=== PATIENT | male | born 1995 | race Caucasian/White ===

== ENCOUNTER 2016-07-28 11:53 | Emergency (ER) | payer SELFPAY ==
--- NOTE | 2016-07-28 12:38 | UC ---
Throat Pain/Nasal Blu HPI - HPI Summary HPI Summary: ST and fever starting 4 days ago, fever stopped after the first two days but ST continued and pt has been feeling lots of swelling in throat. Denies vomiting, rash, or cough. - History of Current Complaint Chief Complaint: UCRespiratory Stated Complaint: SORE THROAT Time Seen by Provider: 07/28/16 12:23 Hx Obtained From: Patient Onset/Duration: Gradual Onset, Lasting Days Severity: Moderate Cough: None Associated Signs & Symptoms: Positive: Fever - Allergies/Home Medications Allergies/Adverse Reactions: Allergies Allergy/AdvReac Type Severity Reaction Status Date / Time No Known Allergies Allergy Verified 07/28/16 12:06 PMH/Surg Hx/FS Hx/Imm Hx - Surgical History Surgical History: None - Family History Known Family History: Positive: Hypertension - Social History Occupation: Student Alcohol Use: None Substance Use Type: None Smoking Status (MU): Never Smoked Tobacco Review of Systems Constitutional: Fever, Chills Skin: Negative Eyes: Negative ENT: Sore Throat Respiratory: Negative Cardiovascular: Negative Gastrointestinal: Negative Genitourinary: Negative Motor: Negative Neurovascular: Negative Musculoskeletal: Negative Neurological: Negative Psychological: Negative All Other Systems Reviewed And Are Negative: Yes Physical Exam Triage Information Reviewed: Yes Appearance: Well-Appearing, No Pain Distress, Well-Nourished Vital Signs: Initial Vital Signs Temp 99.4 F 07/28/16 12:02 Pulse 107 07/28/16 12:02 Resp 18 07/28/16 12:02 BP 124/79 07/28/16 12:02 Pulse Ox 98 07/28/16 12:02 Vital Signs Reviewed: Yes Eye Exam: Normal Eyes: Positive: Conjunctiva Clear ENT: Positive: Hearing grossly normal, Pharyngeal erythema, TMs normal, Tonsillar swelling Dental Exam: Normal Neck: Positive: Enlarged Nodes @ - tonsillar, ant cervical Respiratory Exam: Normal Respiratory: Positive: Chest non-tender, Lungs clear, Normal breath sounds, No respiratory distress, No accessory muscle use Cardiovascular: Positive: No Murmur, Tachycardia Musculoskeletal Exam: Normal Neurological Exam: Normal Neurological: Positive: Alert Psychological Exam: Normal Skin Exam: Normal Throat Pain/Nasal Course/Dx - Course Course Of Treatment: Discussed clinical diagnosis of strep, pt is comfortable with this and empiric treatment. Will see his PCP or return here for new or prolonged symptoms. - Differential Dx/Diagnosis Provider Diagnoses: Strep tonsillitis, clinical diagnosis. elevated blood pressure due to discomfort Discharge - Discharge Plan Condition: Stable Disposition: HOME Prescriptions: Penicillin VK TAB 500 MG(NF) [Penicillin VK 500 mg Tab(NF)] 500 mg PO BID #20 tab Patient Education Materials: Strep Throat (ED) Referrals: Mikki Carreon MD [Primary Care Provider] - Additional Instructions: If you do not have clear improvement in the next 3-4 days, or if you have worsening symptoms, please see your primary care provider.
== END 2016-07-28 12:48 | disposition home or self-care (01) ==
LOC: UCEAST 11:53
DX: J03.00 Acute streptococcal tonsillitis, unspecified (principal); R03.0 Elevated blood-pressure reading, without diagnosis of hypertension
CPT/HCPCS: 99202; G0463

== ENCOUNTER 2016-09-16 18:12 | Emergency (ER) | payer BC ==
[2016-09-16 18:18] VITALS: BP 129/86
--- NOTE | 2016-09-16 21:07 | UC ---
Miguel Sousa SooYoung, scribed for Kweis Hunt MD on 09/16/16 at 1856 . Skin Complaint HPI - HPI Summary HPI Summary: A 20 y/o M presents to [facility] [place] with c/o diffuse, non-pruritic rash, or possible insect bites, onset a week ago. Pt states it's not resolving. Erythematous areas are small and located on all extremities, chest and back, he first noticed it on his L calf. Denies being in a hot tub recently, new medications, or new soaps. Pt states feeling healthy otherwise. - History of Current Complaint Chief Complaint: [facility] Time Seen by Provider: 09/16/16 18:50 Stated Complaint: RASH Hx Obtained From: Patient Onset/Duration: Gradual Onset, Lasting Weeks - approx one week, Still Present Timing: Constant Onset Severity: Moderate Current Severity: Moderate Pain Intensity: 0 Pain Scale Used: 0-10 Numeric Location: Diffuse Character: Redness Associated Signs & Symptoms: Positive: Negative - Allergy/Home Medications Allergies/Adverse Reactions: Allergies Allergy/AdvReac Type Severity Reaction Status Date / Time No Known Allergies Allergy Verified 07/28/16 12:06 Home Medications: Home Medications NK [No Home Medications Reported] 09/16/16 [History Confirmed 09/16/16] Review of Systems Constitutional: Negative Skin: Rash - diffuse full-body rash All Other Systems Reviewed And Are Negative: Yes PMH/Surg Hx/FS Hx/Imm Hx Previously Healthy: Yes - denies PMHx; neg COPD. - Surgical History Surgical History: None - Family History Known Family History: Positive: Hypertension - Social History Occupation: Employed Full-time Lives: With Family Alcohol Use: None Substance Use Type: Marijuana Substance Use Comment - Amount & Last Used: twice a year. Smoking Status (MU): Never Smoked Tobacco Physical Exam Triage Information Reviewed: Yes Appearance: Well-Appearing, No Pain Distress Vital Signs: Initial Vital Signs Temp 99.4 F 09/16/16 18:14 Pulse 102 09/16/16 18:14 Resp 18 09/16/16 18:14 BP 129/86 09/16/16 18:14 Pulse Ox 100 09/16/16 18:14 Vital Signs Reviewed: Yes Eye Exam: Normal - EOMI, RENAE ENT: Positive: Normal ENT inspection Neck: Positive: Supple, Nontender Respiratory: Positive: Lungs clear, Normal breath sounds Cardiovascular: Positive: RRR Abdomen Description: Positive: Nontender, Soft Musculoskeletal Exam: Normal Musculoskeletal: Positive: Strength Intact Neurological Exam: Normal - A&Ox3; sensory/motor intact Psychological Exam: Normal - affect/mood appropriate Skin: Positive: rashes - Erythematous rash with 2-10mm scaling patches, uniformly distributed on his trunk and extremities. Course/Dx - Course Course Of Treatment: Pt medications reviewed this visit. Pre-Hypertensive BP reading (129/86); patient referred to PCP for follow-up. WILL CHECK LAB WORK TO EVAL FOR ANY SYSTEMIC CAUSE OF THE RASH. DISCUSSED THE POSSIBLE CAUSES. I GAVE THE PATIENT AN UPTODATE PATIENT INFORMATION HANDOUT FOR PITYRIASIS ROSEA. PATIENT FEELS WELL. F/U PMD, RETURN IF WORSE. - Diagnoses Provider Diagnoses: RASH, PROBABLE PITYRIASIS ROSEA. Discharge - Discharge Plan Condition: Stable Disposition: HOME Patient Education Materials: Acute Rash (ED), Pityriasis rosea (ED) Referrals: Mikki Carreon MD [Primary Care Provider] - Additional Instructions: Your blood pressure reading today was 129/86, which is PRE-HYPERTENSIVE. Follow- up with your primary care provider within 4 weeks for blood pressure readings and further evaluation. FOLLOW UP WITH YOUR DOCTOR. YOUR RASH APPEARS TO BE PITYRIASIS ROSEA. LAB WORK WAS OBTAINED TO ENSURE THERE ARE ARE NO ABNORMALITIES OF YOUR WHITE BLOOD CELLS. GET SEEN AGAIN FOR ANY WORSENING OF YOUR CONDITION OR QUESTIONS OR CONCERNS. The documentation as recorded by the Miguel ireland SooYoung accurately reflects the service I personally performed and the decisions made by me, Kwesi Hunt MD.
[2016-09-17 13:39] LABS: Hematocrit 47 % (42-52); Hemoglobin 15.4 g/dl (14.0-18.0); Mean Corpuscular HGB Conc 33 g/dl (31-36); Mean Corpuscular Hemoglobin 31 pg (27-31); Mean Corpuscular Volume 93 fL (80-94); Mean Platelet Volume 9 um3 (7.4-10.4); Red Blood Count 5.04 10^6/ul (4.0-5.4); Red Cell Distribution Width 14 % (10.5-15); White Blood Count 10.1 10^3/ul (3.5-10.8)
[2016-09-17 13:43] LABS: Add Diff/Slide Review? Slide Review Added; Comments Flag Yes
[2016-09-17 14:02] LABS: ALT 11 U/L (7-52); AST 20 U/L (13-39); Albumin 4.6 g/dL (3.2-5.2); Alkaline Phosphatase 75 U/L (34-104); Anion Gap 7 mmol/L (2-11); BUN/Creatinine Ratio 14.4 (8-20); Blood Urea Nitrogen 13 mg/dL (6-24); CO2 Carbon Dioxide 28 mmol/L (22-32); Calcium 9.4 mg/dL (8.6-10.3); Chloride 104 mmol/L (101-111); EGFR African American 138.4 (>60); EGFR Non-African American 107.6 (>60); Glucose 86 mg/dL (70-100); Potassium 4.5 mmol/L (3.5-5.0); Sodium 139 mmol/L (133-145); Total Protein 7.6 g/dL (6.4-8.9)
== END 2016-09-16 19:15 | disposition home or self-care (01) ==
LOC: UCEAST 18:12
DX: R21 Rash and other nonspecific skin eruption (principal)
CPT/HCPCS: 36415; 80053; 85025; 86141; 99211; G0463

== ENCOUNTER 2017-05-09 19:07 | Emergency (ER) | payer BC ==
[2017-05-09 19:40] VITALS: BP 120/74
[2017-05-09] MEDS ORDERED: Famotidine TAB* 20 MG PO ONE (21:33)
[2017-05-09] MEDS ORDERED: Al Hydrox/Mg Hydrox/Simet LIQ* 30 ML UDC PO ONE (21:33)
--- NOTE | 2017-05-09 21:51 | UC ---
Abdominal Pain Male HPI - HPI Summary HPI Summary: 21 year old male with no significant pmhx here with LUQ pain for two weeks. Pain is described as sharp stabbing with no radiation. Pain is intermittent with no alleviating or aggravating factor. Reports constipation but denies any other complaints. - History of Current Complaint Chief Complaint: UCAbdominalPain Stated Complaint: ABD PAIN Time Seen by Provider: 05/09/17 20:56 Onset/Duration: Gradual Onset Timing: Constant Severity Initially: Mild Severity Currently: Mild Pain Intensity: 2 Location: Discrete At: RUQ Radiates: No Character: Sharp Aggravating Factor(s): Food Alleviating Factor(s): Spontaneous Resolution Associated Signs And Symptoms: Positive: Constipation, Diarrhea. Negative: Fever, Cough, Urinary Symptoms, Vomiting - Allergies/Home Medications Allergies/Adverse Reactions: Allergies Allergy/AdvReac Type Severity Reaction Status Date / Time No Known Allergies Allergy Verified 07/28/16 12:06 PMH/Surg Hx/FS Hx/Imm Hx Previously Healthy: Yes - Surgical History Surgical History: None - Family History Known Family History: Positive: Hypertension - Social History Alcohol Use: None Substance Use Type: Marijuana Substance Use Comment - Amount & Last Used: twice a year. Smoking Status (MU): Never Smoked Tobacco Review of Systems Constitutional: Negative Skin: Negative Eyes: Negative ENT: Negative Respiratory: Negative Cardiovascular: Negative Gastrointestinal: Abdominal Pain Genitourinary: Negative Motor: Negative Neurovascular: Negative Musculoskeletal: Negative Neurological: Negative Psychological: Negative All Other Systems Reviewed And Are Negative: Yes Physical Exam Triage Information Reviewed: Yes Appearance: Well-Appearing, No Pain Distress Vital Signs: Initial Vital Signs Temp 37.8 C 05/09/17 19:35 Pulse 94 05/09/17 19:35 Resp 16 05/09/17 19:35 BP 120/74 05/09/17 19:35 Pulse Ox 99 05/09/17 19:35 Eye Exam: Normal ENT Exam: Normal Dental Exam: Normal Respiratory Exam: Normal Cardiovascular Exam: Normal Abdominal Exam: Normal Bowel Sounds: Positive: Present Musculoskeletal Exam: Normal Neurological Exam: Normal Abd Pain Male Course/Dx - Differential Dx/Clinical Impression Differential Diagnosis/HQI/PQRI: Diverticulitis, Pancreatitis, Urinary Tract Infection, Other - gastritis Provider Diagnoses: Left upper quadrant pain Discharge - Discharge Plan Condition: Good Disposition: HOME Prescriptions: Docusate Sodium [Colace] 100 mg PO TID 30 Days #90 capsule Famotidine TAB* [Pepcid 20 MG TAB*] 40 mg PO DAILY #30 tab Patient Education Materials: Constipation (ED), Gastritis (ED) Forms: *Work Release Referrals: Mikki Carreon MD [Primary Care Provider] - Additional Instructions: Follow up with your PMD if the symptoms do not resolve.
== END 2017-05-09 21:56 | disposition home or self-care (01) ==
LOC: UCEAST 19:07
DX: R10.12 Left upper quadrant pain (principal)
CPT/HCPCS: 81003; 87086; 99212; A9270-GY; G0463

== ENCOUNTER 2017-06-11 12:27 | Emergency (ER) | payer BC ==
[2017-06-11 13:37] VITALS: BP 123/71
--- NOTE | 2017-06-11 13:48 | UC ---
Throat Pain/Nasal Blu HPI - HPI Summary HPI Summary: 21 y/o male presents to the urgent care c/o sore throat , dry cough, headache, body aches, sweats, fever, since 06/08/2017. Pt has taking ibuprofen PO to alleviate symptoms. Last dose 2 hrs ago. Pain w/ swallowing is 7/10. Pt denies SOB, chest pain, abdominal pain ,N/V/D - History of Current Complaint Chief Complaint: UCRespiratory Stated Complaint: SINUS CONGESTION Time Seen by Provider: 06/11/17 13:39 Hx Obtained From: Patient Onset/Duration: Gradual Onset, Lasting Days - 4 days, Still Present, Worse Since - today Severity: Moderate Pain Intensity: 7 Pain Scale Used: 0-10 Numeric Cough: Nonproductive Associated Signs & Symptoms: Positive: Dysphagia, Nasal Discharge, Fever - Epiglottits Risk Factors Epiglottis Risk Factors: Negative - Allergies/Home Medications Allergies/Adverse Reactions: Allergies Allergy/AdvReac Type Severity Reaction Status Date / Time No Known Allergies Allergy Verified 06/11/17 13:37 PMH/Surg Hx/FS Hx/Imm Hx Previously Healthy: Yes - Pt denies PMHX - Surgical History Surgical History: None - Family History Known Family History: Positive: Hypertension, Diabetes - Social History Occupation: Student Lives: With Family Alcohol Use: None Substance Use Type: Marijuana Substance Use Comment - Amount & Last Used: twice a year. Smoking Status (MU): Never Smoked Tobacco - Immunization History Vaccination Up to Date: Yes Review of Systems Constitutional: Fever, Chills, Fatigue, Other - body aches Skin: Negative Eyes: Negative ENT: Sore Throat, Nasal Discharge, Sinus Congestion Respiratory: Cough - dry Cardiovascular: Negative Gastrointestinal: Negative Genitourinary: Negative Motor: Negative Neurovascular: Negative Musculoskeletal: Negative Neurological: Headache Psychological: Negative Is Patient Immunocompromised?: No All Other Systems Reviewed And Are Negative: Yes Physical Exam - Summary Physical Exam Summary: VITAL SIGNS: Reviewed. GENERAL: Patient is a well developed and nourished male who is sitting comfortable in the examining table. Patient is not in any acute respiratory distress. HEAD AND FACE: No signs of trauma. No ecchymosis, hematomas or skull depressions. No sinus tenderness. edematous erythematous nasal mucosa with yellowish discharge, EYES: PERRLA, EOMI x 2, No injected conjunctiva, clear watery eyes, no nystagmus. No photophobia. EARS: Hearing grossly intact. Ear canals and tympanic membranes are within normal limits. MOUTH: Positive pharynx with erythema, no exudates,no palatal petechiae. no B/L tonsillar enlargement Uvula in midline. NECK: Supple, trachea is midline, Positive anterior cervical lymphadenopathy, no JVD, no carotid bruit, no c-spine tenderness, neck with full ROM. No meningeal signs, no Kernig's or brudzinskis signs. CHEST: Symmetric, no tenderness at palpation LUNGS: Clear to auscultation bilaterally. No wheezing or crackles. CVS: Regular rate and rhythm, S1 and S2 present, no murmurs or gallops appreciated. ABDOMEN: Soft, non-tender. No signs of distention. No rebound no guarding, and no masses palpated. Bowel sounds are normal. EXTREMITIES: FROM in all major joints, no edema, no cyanosis or clubbing. NEURO: Alert and oriented x 3. No acute neurological deficits. Speech is normal and follows commands. SKIN: Dry and warm Triage Information Reviewed: Yes Vital Signs: Initial Vital Signs Temp 99.2 F 06/11/17 13:34 Pulse 104 06/11/17 13:34 Resp 18 06/11/17 13:34 BP 123/71 06/11/17 13:34 Pulse Ox 98 06/11/17 13:34 Throat Pain/Nasal Course/Dx - Course Course Of Treatment: 21 y/o male presents to the urgent care c/o sore throat , dry cough, headache, body aches, sweats, fever, since 06/08/2017. Pt has taking ibuprofen PO to alleviate symptoms. Last dose 2 hrs ago. Pain w/ swallowing is 7 /10. Pt denies SOB, chest pain, abdominal pain ,N/V/D. Hx obtained. Pt w/ URI on examination. Rapid strep ordered, result: negative.Influenza A&B ordered: result: Influenza B positive.Pt Rx Tamiflu and ibuprofen PO to alleviates symptoms. Advised on hand washing and wear a mask to avoid spreading. Pt advised to rest, increase fluid intake, eat well and avoid strenuous exercise. If symptoms do not improve or worsen advised to return to the urgent care or f/ u with her PCP for further evaluation and treatment. Pt understood and agreed with plan of care. - Differential Dx/Diagnosis Differential Diagnosis/HQI/PQRI: Influenza, Mononucleosis, Otitis Media, Pharyngitis, Sinusitis, Tonsillitis, URI Provider Diagnoses: 1- Influenza B. 2-Fever Discharge - Sign-Out/Discharge Documenting (check all that apply): Discharge - Discharge Plan Condition: Stable Disposition: HOME Prescriptions: Ibuprofen TAB* [Motrin TAB* 800 MG] 800 mg PO Q6H PRN #20 tab PRN Reason: Fever Oseltamivir CAP* [Tamiflu CAP*] 75 mg PO BID #10 cap Patient Education Materials: Influenza (ED) Forms: *Work Release Referrals: Mikki Carreon MD [Primary Care Provider] - 3 Days Additional Instructions: 1- Please take the full course of the antiviral to avoid resistance. Encourage hand washing and wear a mask to avoid spreading. 2-Please continue taking Ibuprofen PO q6-8hrs prn as instructed after meals to alleviate fever, and sore throat. Increase fluid intake, eat well, rest and avoid strenuous exercise 3-If symptoms do not improve or worsen please return to the urgent care or f/u with your PCP in 2 days for further evaluation and treatment. - Billing Disposition and Condition Condition: STABLE Disposition: HOME
== END 2017-06-11 14:15 | disposition home or self-care (01) ==
LOC: UCEAST 12:27
DX: J10.1 Influenza due to other identified influenza virus with other respiratory manifestations (principal); R50.9 Fever, unspecified
CPT/HCPCS: 87502; 87651; 99212; G0463